=== PATIENT | female | born 1960 | race Caucasian/White ===

== ENCOUNTER 2018-01-15 12:54 | Day surgery (SDC) | payer OTHER ==
[2016-07-26 18:24] VITALS: BP 140/92
[2018-01-15] MEDS ORDERED: SALINE FLUSH 10 ML DISP.SYRIN IVF ONE (12:55)
[2018-01-15] MEDS ORDERED: PROPOFOL 200 MG/20 ML VIAL IV ONE (12:55)
[2018-01-15] MEDS ORDERED: PROPOFOL 500 MG/50 ML VIAL IV ONE (12:55)
[2018-01-15] MEDS ORDERED: LACTATED RINGERS 1,000 ML IV.SOLN IV ONE (12:55)
--- NOTE | 2018-01-15 14:28 | GI Report ---
REFERRING PHYSICIAN: Dr. Manuelito Cardenas INSURANCE COORDINATOR: Sami Fischer MD PROCEDURE MEDICATION: Propofol as per anesthesia. INDICATIONS: This 57-year-old woman has had some change in bowel habits, episodes where she is irregular and does not go and then goes into diarrhea, and a recent diagnosis of lung cancer with surgery. She has been a cigarette smoker for 40 years starting in her early teens. She apparently did stop smoking in August 2017 at the time of her lung surgery. Her gallbladder is still in place. She weighs 102 kilograms and carries that weight centrally. PROCEDURE PERFORMED: Colonoscopy and biopsies. PROCEDURE: An Contently video colonoscope was advanced to the rectum. Kind of a atonic redundant colon with slight friability to the mucosa. So, we did take some random biopsies. At 30 cm in the sigmoid, there was a 2 to 3 mm flat polyp that was cold biopsy removed. The colonoscope was advanced all the way to the cecum and into the terminal ileum looked normal. No obvious Crohn's. On slow withdrawal, the cecum, ascending colon, and transverse colon with redundancy and slight friability and some random biopsies looking for microscopic colitis. Again, the descending colon and sigmoid, slight friability, a few random biopsies looking for microscopic colitis. There was the 1 small polyp in the sigmoid at 30 cm biopsy removed. She does have hemorrhoids, large and internal. FINDINGS: 1. Colon polyp. 2. Biopsies to rule out microscopic colitis. RECOMMENDATIONS: 1. A high-fiber diet, like adding Benefiber or Metamucil or Citrucel. 2. Pending the pathology of the polyp, consider re-looking at her colon in 5 years. cc: Dr. Manuelito SINGLETON
== END 2018-01-15 12:55 ==
LOC: OPSURG 12:54
PROVIDERS: ATTEND Internal Medicine Gastroenterology
DX: K63.5 Polyp of colon (principal); R19.7 Diarrhea, unspecified; C34.90 Malignant neoplasm of unspecified part of unspecified bronchus or lung; F17.211 Nicotine dependence, cigarettes, in remission
CPT/HCPCS: 88305; J2704; J7120; 45385; S1016

== ENCOUNTER 2018-02-13 11:25 | Outpatient (CLI) | payer OTHER ==
[2016-07-26 18:24] VITALS: BP 140/92
[~2018-02-13 11:25] MED LIST: Lidocaine 1% 5ml(IM or SUTURE)(PAIN CLINIC) ONE; TRIAMCINOLONE ACETONID 40MG/ML VIAL ONE; WATER FOR INJECTION,STERILE 100 ML VIAL IJ ONE
--- NOTE | 2018-02-19 10:52 | LESI WITH FLUORO ---
SUBJECTIVE: Mrs. Caldera follows up with me today. This is a patient I have treated in the past with both cervical pain and ilioinguinal pain. She has had a previous Pfannenstiel procedure in the abdomen. She said she has had repeat pelvic procedures done. Her chief complaint today is sciatica with left lower extremity pain with walking, bending, standing, and twisting and worse over the course of the day and better with rest and better first thing in the morning. She is referred today by Dr. Cardenas for low back pain and left lower extremity radiculitis. She has a new MRI image dated 10-09-17 which reveals a grade 1 spondylolisthesis at L5-L5 with moderate to severe spinal stenosis of the L4-L5 level. She has a right paracentral L5-S1 disc protrusion with right neural foraminal stenosis, however, most of her symptoms are left-sided. She does give me symptoms consistent with neurogenic claudication and spinal stenosis. PHYSICAL EXAMINATION: General: The patient is well nourished, well developed, and in no apparent distress. Awake, alert, and oriented. HEENT: Pupils are equal, round, and reactive to light and accommodation. Extraocular movements intact. No facial droop. Neck: There is full range of motion of the cervical spine. No evidence of adenopathy. Thyroid is nontender, not enlarged. Carotids are without bruits. Chest: Clear to auscultation bilaterally. Normal chest excursion. Heart: Regular rate and rhythm without murmur. Abdomen: Benign. Normoactive bowel sounds. Motor/sensory: Intact in the upper and lower extremities. Moves all extremities freely. Back: Positive left straight leg raise. OPERATIVE PROCEDURE: Left L5-S1 epidural steroid injection under fluoroscopic guidance. DESCRIPTION OF PROCEDURE: The risks and benefits were discussed with the patient including the risk of infection, bleeding, nerve injury, and headache, as well as the risks of steroid exposure causing hyperglycemia, hypertension, osteoporosis, or increased infectious risks. The patient understood these risks and agreed to proceed. Consent was obtained prior to the procedure. The patient was placed in the prone position on the fluoroscopy table with a pillow underneath the abdomen to afford anterior flexion of the lumbar spine. The low back was cleaned and a sterile drape was applied. An epidural needle was advanced with normal saline loss of resistance technique and direct fluoroscopic guidance with a left paramedian approach at the L5-S1 level. On obtaining loss of resistance to normal saline, it was verified that there was no aspiration of CSF or blood. Furthermore, the needle tip location was verified with lateral and AP fluoroscopic views. Omnipaque 240 myelogram dye were injected through the epidural needle. The distribution of the dye was noted to be within the desired distribution within the lumbar epidural space. The medication was injected into the epidural space. The stylet was replaced in the needle and the needle was removed from the back. The patient tolerated the procedure well. The back was cleaned and a bandage was applied over the injection site. The patient was monitored for 20 minutes following the procedure. during this time the vital signs remained stable and the patient experienced no adverse sequelae. The patient was discharged in good condition. ASSESSMENT: 1. L4-L5 grade 1 spondylolisthesis with moderate to severe spinal stenosis. 2. Right paracentral L5-S1 disc protrusion. 3. Neurogenic claudication and spinal stenosis. 4. Left lower extremity radicular pain. 5. History of pelvic surgery with ilioinguinal neuralgia. PLAN: Plan for a lumbar epidural steroid injection today under fluoroscopy. FOLLOWUP: We will follow this nice lady up. If the sciatica has resolved and neurogenic claudication is no longer a problem, we will proceed with potential diagnostic/ therapeutic injection at the ilioinguinal nerve. Dr. Cardenas, thank you again for allowing me to take part in the care of this nice lady. I appreciate the opportunity to take part in the care of your patients. cc: Dr. Manuelito SINGLETON
== END 2018-02-13 11:26 ==
LOC: OUT 11:25
PROVIDERS: ATTEND Anesthesiology Pain Medicine
DX: M43.16 Spondylolisthesis, lumbar region (principal); M51.17 Intervertebral disc disorders with radiculopathy, lumbosacral region; M48.062 Spinal stenosis, lumbar region with neurogenic claudication
CPT/HCPCS: J3301; Q9966; 62323; 99213; A4550

== ENCOUNTER 2018-02-23 15:09 | Outpatient (CLI) | payer OTHER ==
[2016-07-26 18:24] VITALS: BP 140/92
[2018-02-23 15:43] LABS: EOSINOPHILS % 3.5 % (0.0-6.8); MEAN CORPUSCULAR HEMOGLOBIN 28.8 pg (28.0-34.0); MEAN CORPUSCULAR VOLUME 89.5 fl (80.0-100.0); MONOCYTES % 4.2 % (0.0-11.0); NEUTROPHILS # 2.9 # k/uL (1.4-7.7)
[2018-02-23 15:45] LABS: eGFR (African) > 60; eGFR (Non-African) > 60
== END 2018-02-23 15:14 ==
LOC: LAB 15:09
PROVIDERS: ATTEND Family Medicine
DX: I10 Essential (primary) hypertension (principal)
CPT/HCPCS: 36415; 80053; 85025

== ENCOUNTER 2018-04-03 10:01 | Outpatient (CLI) | payer OTHER ==
[2016-07-26 18:24] VITALS: BP 140/92
--- NOTE | 2018-04-19 12:16 | LESI WITH FLUORO ---
SUBJECTIVE: Ms. Caldera follows up today with recurrent left-sided low back, left leg and hip pain, and a history of L4 radiculitis with previous good response to a lumbar injection. She rates her pain as 7 over 10 on the visual analog scale. She had gotten relief previously with an epidural injection placed earlier this year and I am going to follow her up today and place a left L5-S1 epidural injection under fluoroscopic guidance. OPERATIVE PROCEDURE: Left L5-S1 epidural steroid injection with fluoroscopic guidance. DESCRIPTION OF PROCEDURE: The risks and benefits were discussed with the patient including the risk of infection, bleeding, nerve injury, and headache, as well as the risks of steroid exposure causing hyperglycemia, hypertension, osteoporosis, or increased infectious risks. The patient understood these risks and agreed to proceed. Consent was obtained prior to the procedure. The patient was placed in the prone position on the fluoroscopy table with a pillow underneath the abdomen to afford anterior flexion of the lumbar spine. The low back was cleaned and a sterile drape was applied. An 18-gauge thin wall Tuohy epidural needle was advanced with normal saline loss of resistance technique and direct fluoroscopic guidance with a left paramedian approach at the L5-S1 level. On obtaining loss of resistance to normal saline, it was verified that there was no aspiration of CSF or blood. Furthermore, the needle tip location was verified with lateral and AP fluoroscopic views. Omnipaque 240 myelogram dye were injected through the epidural needle. The distribution of the dye was noted to be within the desired distribution within the lumbar epidural space. The medication was injected into the epidural space. The stylet was replaced in the needle and the needle was removed from the back. The patient tolerated the procedure well. The back was cleaned and a bandage was applied over the injection site. The patient was monitored for 20 minutes following the procedure. during this time the vital signs remained stable and the patient experienced no adverse sequelae. The patient was discharged in good condition. ASSESSMENT: Lumbar radiculitis. FOLLOWUP: Return to clinic if problems develop or worsen. cc: Dr. Manuelito SINGLETON
== END 2018-04-03 10:03 ==
LOC: OUT 10:01
PROVIDERS: ATTEND Anesthesiology Pain Medicine
DX: M54.17 Radiculopathy, lumbosacral region (principal)
CPT/HCPCS: J3301; Q9966; 62323; 99213; A4550

== ENCOUNTER 2018-12-07 09:32 | Outpatient (CLI) | payer MEDICARE, OTHER ==
[2016-07-26 18:24] VITALS: BP 140/92
[2018-12-07 10:07] LABS: BASOPHILS % 0.3 % (0.0-1.5); EOSINOPHILS % 1.5 % (0.0-6.8); MEAN CORPUSCULAR HEMOGLOBIN 28.2 pg (28.0-34.0); MONOCYTES % 5.2 % (0.0-11.0)
[2018-12-07 11:16] LABS: eGFR (Non-African) > 60
--- NOTE | 2018-12-07 19:11 | Diagnostic Imaging Report ---
KAYLEE LASSITER [facility] [id number] [facility], [facility] [address] [place] [address]. [id number] Report Submission Date: Dec 07, 2018 2:22:35 PM CDT Patient Study Name: BARBARA JANE Date: Dec 07, 2018 9:50:42 AM CDT Modality Type: DX Gender: U Description: ABD SERIES PA CHEST : 62 Institution: [facility] Physician: KAYLEE LASSITER EXAMINATION: ABD SERIES PA CHEST HISTORY: abd pain for months COMPARISON: None FINDINGS: A calcified granuloma is noted in the left lower lobe. There is no focal consolidation, pleural effusion, or pneumothorax. The cardiomediastinal silhouette is normal. There are no abnormally dilated bowel loops. No pneumoperitoneum or pathological calcification is seen. The visible osseous structures are intact. There is lower lumbar degenerative change. Mesh overlies the pelvis. IMPRESSION: 1. No acute pulmonary process. 2. No evidence of bowel obstruction. Electronically signed on Dec 07, 2018 2:22:35 PM CDT by: Buzz SINGLETON
== END 2018-12-07 09:33 ==
LOC: LAB 09:32
PROVIDERS: ATTEND Nurse Practitioner Family
DX: R10.84 Generalized abdominal pain (principal); J06.9 Acute upper respiratory infection, unspecified
CPT/HCPCS: 36415; 74022; 80053; 85025